=== PATIENT | male | born 1955 | race Caucasian/White ===

== ENCOUNTER → 2019-11-03 | Outpatient (CLI) | payer BC ==
[~2019-11-03] MED LIST: FAMO20TA5 PO; MESA1.2T PO; METO50TA6 PO
== END | disposition home or self-care (01) ==
LOC: LAB 08:30
PROVIDERS: ATTEND Nurse Anesthetist, Certified Registered
DX: Z01.818 Encounter for other preprocedural examination (principal); Z11.59 Encounter for screening for other viral diseases
CPT/HCPCS: 36415; U0003

== ENCOUNTER → 2019-11-05 | Day surgery (SDC) | payer BC ==
[~2019-11-05] MED LIST changes: +IPRATRPIUM/ALBUTEROL 0.5/2.5MG 3 ML NEBU. NEB PRN; +IV RINGERS SOLUTION,LACTATED 1,000 ML IV SCH; +MIDAZOLAM HCL PF 2 MG/2 ML VIAL. IV ONE; +ONDANSETRON PF 4 MG/2 ML VIAL. IV PRN; +PROPOFOL 10,000 MCG/ML (20ML) VIAL IV ONE
[2019-11-05 11:54] VITALS: BP 128/51
--- NOTE | 2019-11-08 21:07 | PATHOLOGY ---
[facility] Accession Number: [id number] . 01 Material submitted: . PART A: colon - RIGHT COLON. Modifiers: right PART B: cecum - CECUM POLYP PART C: colon - TRANSVERSE COLON BX. Modifiers: transverse PART D: colon - TRANSVERSE COLON POLYP. Modifiers: transverse PART E: colon - DESCENDING COLON BX. Modifiers: descending PART F: sigmoid colon - SIGMOID COLON BX PART G: rectum - RECTUM BX . 01 Clinical history: . None provided . 02 Diagnosis: A. Colon biopsies, right colon: - Segments of colonic mucosa showing no evidence of active chronic destructive colitis or dysplasia. . B. Colon biopsy, cecal polyp: - Consistent with prominent mucosal fold - no evidence of adenomatous change or dysplasia. . C. Colon biopsies, transverse colon: - Segments of colonic mucosa showing no evidence of active chronic destructive colitis or dysplasia. . D. Colon biopsy, transverse colon polyp: - Consistent with prominent mucosal fold - no evidence of adenomatous change or dysplasia. . E. Colon biopsies, descending colon: - Segments of colonic mucosa showing no evidence of active chronic destructive colitis or dysplasia. . F. Colon biopsies, sigmoid colon: - Segments of colonic mucosa showing no evidence of active chronic destructive colitis or dysplasia. . G. Colorectal biopsies, rectum: - Segments of rectal mucosa showing reactive changes - no evidence of active chronic destructive colitis or dysplasia. . (JPM:[email or web address]; 11/08/2019) [facility] 11/08/2019 1603 Local . 02 Electronically signed: . Brett Cardenas MD, Pathologist NPI- [id number] . 01 Gross description: . A. The specimen is received in formalin, labeled "[place], right colon". Received are three segments of pale hutson soft tissue ranging in size from 0.3 to 0.4 cm in maximum dimensions. The specimen is submitted entirely in cassette A1. . B. The specimen is received in formalin, labeled "[place], cecal polyp". Received is a segment of pale hutson soft tissue measuring 0.4 cm in maximum dimensions. The specimen is submitted entirely in cassette B1. . C. The specimen is received in formalin, labeled "[place], transverse biopsy". Received are three segments of pale hutson soft tissue ranging in size from 0.3 to 0.5 cm in maximum dimensions. The specimen is submitted entirely in cassette C1. . D. The specimen is received in formalin, labeled "[place], transverse polyp". Received is a segment of pale hutson soft tissue measuring 0.3 cm in maximum dimensions. The specimen is submitted entirely in cassette D1. . E. The specimen is received in formalin, labeled "[place], descending colon biopsy". Received are three segments of pale hutson soft tissue ranging in size from 0.3 to 0.4 cm in maximum dimensions. The specimen is submitted entirely in cassette E1. . F. The specimen is received in formalin, labeled "[place], sigmoid biopsy". Received are six segments of pale hutson soft tissue ranging in size from 0.2 to 0.5 cm in maximum dimensions. The specimen is submitted entirely in cassette F1. . G. The specimen is received in formalin, labeled "[place], rectum biopsy". Received are three segments of pale hutson soft tissue ranging in size from 0.3 to 0.5 cm in maximum dimensions. The specimen is submitted entirely in cassette G1. (CAA; 11/05/2019) [facility] 11/05/2019 1749 Local . 02 Pathologist provided ICD-10: K52.9, Z12.11 . 02 CPT . 978235, 820150, 622063, 017262, 700441, 534014, [id number] Specimen Comment: A courtesy copy of this report has been sent to [phone], [phone] Specimen Comment: [id number] Specimen Comment: Report sent to / DR GONZALEZ [facility]formed [facility]: [facility] [address], [place], [place] [id number] MD Boris Austin MD Phone: [phone] [facility]formed [facility]: [facility] [address], [place] [id number] MD Brett Cardenas MD Phone: [phone]
== END ==
LOC: EDBD → SURG 09:15
PROVIDERS: ATTEND Internal Medicine Gastroenterology
DX: Z12.11 Encounter for screening for malignant neoplasm of colon (principal); K63.5 Polyp of colon; K52.89 Other specified noninfective gastroenteritis and colitis; K57.30 Diverticulosis of large intestine without perforation or abscess without bleeding; K64.1 Second degree hemorrhoids
CPT/HCPCS: 45380; 45385; 88305; J2704; J7120

== ENCOUNTER 2020-07-21 12:31 | Emergency (ER) | payer BC ==
[~2020-07-21] VITALS: Ht 170.2 cm; Wt 70.0 kg
[~2020-07-21 12:31] MED LIST changes: -IPRATRPIUM/ALBUTEROL 0.5/2.5MG 3 ML NEBU. NEB PRN; -IV RINGERS SOLUTION,LACTATED 1,000 ML IV SCH; -MIDAZOLAM HCL PF 2 MG/2 ML VIAL. IV ONE; -ONDANSETRON PF 4 MG/2 ML VIAL. IV PRN; -PROPOFOL 10,000 MCG/ML (20ML) VIAL IV ONE
[2020-07-21 12:42] VITALS: BP 152/83
[2020-07-21] MEDS ORDERED: NEOMY/BACITR/POLYMYXIN OINT PACKET. TP ONE (12:45)
[2020-07-21] MEDS ORDERED: LIDOCAINE 1% Multi-Dose 20 ML VIAL. IJ ONE (12:45)
--- NOTE | 2020-07-21 13:06 | RAD ---
XR FINGER(S)_LEFT 2+VIEWS_RT History: Reason: Laceration mid 2nd digit. / Spl. Instructions: / History: Technique: 3 views left second digit Comparison: None. Findings: Normal alignment. No fracture. Second digit soft tissue swelling. No radiopaque foreign body. Moderat e second distal interphalangeal DJD. Small calcification on the dorsal aspect of the second middle ph alanx likely related to degenerative changes. Impression: 1. No acute osseous abnormality. No radiopaque foreign body. Electronically signed by: Addison Reyes DO (07/21/2020 1:04 PM) [id number]
[2020-07-21] MEDS ORDERED: CEPH500C PO (13:59)
--- NOTE | 2020-07-21 14:07 | PHYS DOC ---
Past History Past Medical History: High Cholesterol, Hypertension, Other Additional Past Medical Histor: ULCERTVIE COLITIS Past Surgical History: Appendectomy Additional Smoking Information: PT VAPES Alcohol Use: None Adult General Chief Complaint Chief Complaint: LACERATION/AVULSION HPI HPI Patient is a 64-year-old male presents to the emergency department reporting approximately 1-1/2 hours ago he was helping a friend carry a couch when the couch slipped, twisted his left index finger and lacerated his knuckle. Patient states he immediately applied pressure, then decided he should come to the emergency department. Patient reports his tetanus immunization is up-to-date being less than 5 years. Patient complains of 2/10 pain on a 1-10 pain scale. Patient denies any loss of sensation to his lacerated finger. Patient denies any other physical complaints or physical concerns. Review of Systems Review of Systems 14 body systems of review of systems have been reviewed. See HPI for pertinent positives and negative responses, otherwise all other systems are negative, nonpertinent or noncontributory. Current Medications Current Medications Current Medications Medications (Trade) Dose Ordered Sig/Julienne Start Time Stop Time Status Last Admin Dose Admin Lidocaine HCl 20 ml 1X ONCE 07/21/20 12:45 07/21/20 12:46 DC 07/21/20 13:00 20 ML Neomycin/ Polymyxin/ Bacitracin (Triple Antibiotic Ointment) 1 pkt 1X ONCE 07/21/20 12:45 07/21/20 12:46 DC Allergies Allergies Allergies Coded Allergies Type Severity Reaction Last Updated Verified No Known Drug Allergies 07/21/20 No Physical Exam Physical Exam Constitutional: Well developed, well nourished, no acute distress, non-toxic appearance. 64-year-old male in no apparent distress, holding gauze bandage over his left index finger. HENT: Normocephalic, atraumatic, bilateral external ears normal, nose normal appearance visually. Eyes: EOMI, conjunctiva normal, no discharge. Patient tracking normally. Neck: Normal range of motion. Cardiovascular: No cyanosis appreciated, distal cap refill less than 2 seconds Lungs & Thorax: Patient in no apparent respiratory distress. No audible adventitious lung sounds appreciated. Skin: Warm, dry, no erythema, no rash. Except for left index finger, see extremity note. Extremities: No tenderness, no cyanosis, no clubbing, ROM intact, no edema. Except for left hand pointer finger, 3 cm "L "shaped laceration over PIP joint, bleeding controlled with bandage, no loss of sensation distally, distal cap refill less than 2 seconds. No deformity appreciated, limited active range of motion related to pain. No crepitus appreciated. Neurologic: Alert and oriented X 3, normal motor function, normal sensory function, no focal deficits noted. [] Psychologic: Affect normal, judgement normal, mood normal. [] Current Patient Data Vital Signs Vital Signs Date Time Temp Pulse Resp B/P (MAP) Pulse Ox O2 Delivery O2 Flow Rate FiO2 07/21/20 12:42 97.0 76 16 152/83 (106) 99 Room Air EKG EKG [] Radiology/Procedures Radiology/Procedures PATIENT: RADU MACK ACCOUNT: [id number] : 1955 LOCATION: ER AGE: 64 SEX: M EXAM STATUS: REG ER ORD. PHYSICIAN: KOURTNEY LOPEZ DO REASON: Laceration mid 2nd digit. PROCEDURE: FINGER(S) LEFT XR FINGER(S)_LEFT 2+VIEWS_RT History: Reason: Laceration mid 2nd digit. / Spl. Instructions: / History: Technique: 3 views left second digit Comparison: None. Findings: Normal alignment. No fracture. Second digit soft tissue swelling. No radiopaque foreign body. Moderate second distal interphalangeal DJD. Small calcification on the dorsal aspect of the second middle phalanx likely related to degenerative changes. Impression: 1. No acute osseous abnormality. No radiopaque foreign body. Electronically signed by: Addison Reyes DO (07/21/2020 1:04 PM) [id number] DICTATED AND SIGNED BY: ADDISON REYES DO DATE: 07/21/20 1302 CC: KARLOS GONZALEZ MD; KOURTNEY LOPEZ DO ~MTH0 0 Heart Score C/O Chest Pain: No Risk Factors: Risk Factors: DM, Current or recent (<one month) smoker, HTN, HLP, family history of CAD, obesity. Risk Scores: Risk Factors: DM, Current or recent (<one month) smoker, HTN, HLP, family history of CAD, obesity. Course & Med Decision Making Course & Med Decision Making Pertinent Labs and Imaging studies reviewed. (See chart for details) 64-year-old male, vital signs reviewed, presents emergency department for laceration of left pointer finger. Physical examination concerning for possible bony fracture, will order x-ray. Patient's tetanus status up-to-date. X-ray negative for acute process. See laceration repair note. After digital block, patient had full AROM/PROM of affected finger, no concerns for tendon involvement. Discussed with patient laceration repair care, using finger splint, movement of knuckle, prophylactic antibiotic use, signs and symptoms of infectious process, concerns to alert hand surgeon, follow-up with PCP in 7 to 10 days for suture removal, return to ER concerns. Patient gave verbal understanding of discharge home instructions, follow-up with PCP, antibiotic use, hand surgeon follow-up, return to ER precautions and concerns, was discharged home without incident. Patient will be started on 500 mg Keflex twice daily x7 days. The patient's tetanus status was up-to-date. Dragon Disclaimer Dragon Disclaimer This electronic medical record was generated, in whole or in part, using a voice recognition dictation system. Laceration Repair Lac Repair Indication: [] Laceration left pointer finger. Procedure: The patient was placed in the appropriate position and anesthesia around the laceration was achieved with 4 cc 1% lidocaine without epinephrine digital block of the left index finger. The area was then cleansed with povidone and soap, vigorously irrigated with pressurized normal saline 240 cc, the laceration was explored, there were no foreign bodies, the laceration did not extend past the adipose tissue, there was no visualization of tendons or PIP capsule. The laceration was closed with 12 interrupted sutures using 5-0 Ethilon. The laceration repair site was dressed with bacitracin, Band-Aid, aluminum finger splint by ED nursing staff, evaluation of dressing and splint satisfactory. Total repaired wound length: "L "shaped laceration measuring 3 cm in length. Other Items: [OTHER ITEMS] The patient tolerated the procedure well. Complications: [COMPLICATIONS]. Departure Departure: Impression: Primary Impression: Finger laceration Disposition: 01 DC HOME SELF CARE/HOMELESS Condition: GOOD Referrals: KARLOS GONZALEZ MD (PCP) Patient Instructions: Laceration Care, Adult, Splint Care-Brief Additional Instructions: Please take antibiotic prescription as directed, there were 12 sutures placed in your left pointer finger, please keep clean and dry with bandage over suture site, wash daily and apply antibiotic ointment, keep aluminum finger splint on until sutures are removed in 7 to 10 days. Please follow-up with your primary care physician to have sutures removed, return to the emergency department for worsening symptoms or other concerns, we have discussed signs and symptoms of infection, your finger is not infected at this time, I have given you the antibiotic to prevent any infectious process. We have discussed reasons to contact a hand surgeon, I have provided one for you to see in the event you are unable to secure a hand surgeon. Please discuss with your primary care doctor as Dr. Gonzalez may have a specific hand surgeon for you to follow-up with. Dr. Shanice Vargas, Orthopaedic Surgery [facility] [address] [place] [address] EMERGENCY DEPARTMENT GENERAL DISCHARGE INSTRUCTIONS Thank you for coming to [facility] (ED) today and trusting us with you care. We trust that you had a positivie experience in our Emergency Department. If you wish to speak to the department management, you may call the director at [phone]. YOUR FOLLOW UP INSTRUCTIONS ARE FOLLOWS: 1. Do you have a private Doctor? If you do not have a private doctor, please ask for a resource list of physicians or clinics that may be able to assist you with follow up care. 2. The Emergency Physician has interpreted your x-rays. The X-Ray specialist will also review them. If there is a change in the findings, you will be notified in 48 hours when at all possible. 3. A lab test or culture has been done, your results will be reviewed and you will be notified if you need a change in treatment. ADDITIONAL INSTRUCTIONS AND INFORMATION: 1. Your care today has been supervised by a physician who is specially trained in emergency care. Many problems require more than one evaluation for a complete diagnosis and treatment. We recommend that you schedule your follow up appointment as recommended to ensure complete treatment of you illness or injury. If you are unable to obtain follow up care and continue to have a problem, or if your condition worsens, we recommend that you return to the ED. 2. We are not able to safely determine your condition over the phone nor are we able to give sound medical advice over the phone. For these safety reasons, if you call for medical advice we will ask you to come to the ED for further evaluation. 3. If you have any questions regarding these discharge instructions please call the ED at [phone]. SAFETY INFORMATION: In the interest of safety, wellness, and injury prevention; we encourage you to wear your sealbelt, if you smoke; quite smoking, and we encourage family to use a protective helmet for bicycling and other sporting events that present an increased risk for head injury. IF YOUR SYMPTOMS WORSEN OR NEW SYMPTOMS DEVELOP, OR YOU HAVE CONCERNS ABOUT YOUR CONDITION; OR IF YOUR CONDITION WORSENS WHILE YOU ARE WAITING FOR YOUR FOLLOW UP APPOINTMENT; EITHER CONTACT YOUR PRIMARY CARE DOCTOR, THE PHYSICIAN WHOSE NAME AND NUMBER YOU WERE GIVEN, OR RETURN TO THE ED IMMEDIATELY. Scripts Cephalexin (CEPHALEXIN) 500 Mg Capsule 1 CAP PO BID for FINGER LACERATION for 7 Days, #14 CAP 0 Refills Prov: KAT TREVINO APRN 07/21/20 Problem Qualifiers Primary Impression: Finger laceration Encounter type: initial encounter Finger: index finger Damage to nail status: without damage Foreign body presence: without foreign body Laterality: left Qualified Codes: S61.211A - Laceration without foreign body of left index finger without damage to nail, initial encounter KAT TREVINO APRN Jul 21, 2020 14:07
== END 2020-07-21 14:12 | disposition home or self-care (01) ==
LOC: ER 12:31
DX: S61.211A Laceration without foreign body of left index finger without damage to nail, initial encounter (principal); E78.00 Pure hypercholesterolemia, unspecified; I10 Essential (primary) hypertension; F17.220 Nicotine dependence, chewing tobacco, uncomplicated; W26.8XXA Contact with other sharp object(s), not elsewhere classified, initial encounter; Y93.89 Activity, other specified; Y92.89 Other specified places as the place of occurrence of the external cause; Y99.8 Other external cause status
CPT/HCPCS: 12002; 73140; 99283